=== PATIENT | female | born 1985 | race Two or more races ===

== ENCOUNTER 2025-09-24 09:05 | Day surgery (SDC) | payer OTHER ==
[2025-09-24] MEDS ORDERED: fentaNYL CITRATE 50 MCG/ML AMPUL IV PUSH ONE (14:30)
[2025-09-24] MEDS ORDERED: DIPHENHYDRAMINE HCL 50 MG/ML VIAL 1ML IV ONE (14:30)
[2025-09-24] MEDS ORDERED: MIDAZOLAM HCL 2 MG/2 ML VIAL IV ONE (14:30)
== END 2025-09-24 16:00 | disposition home or self-care (01) ==
LOC: CIR.AMB 09:05
PROVIDERS: ATTEND Internal Medicine
DX: K63.5 Polyp of colon (principal)